=== PATIENT | female | born 1980 | race Caucasian/White ===

== ENCOUNTER 2023-09-19 08:26 | Outpatient (CLI) | payer OTHER ==
[~2023-09-19 08:26] MED LIST: BACTROBAN OINT22 GM TP; EYE WASH OP
== END 2023-09-19 08:55 | disposition home or self-care (01) ==
LOC: SONOGRAMA 08:26
DX: R16.1 Splenomegaly, not elsewhere classified (principal); R10.11 Right upper quadrant pain